=== PATIENT | female | born 1970 | race Caucasian/White ===

== ENCOUNTER 2024-10-21 20:47 | Emergency (ER) | payer OTHER, SELFPAY ==
--- OUTSIDE RECORDS SUMMARY | 2024-10-17 07:57 | XMS_ITS | Encounter Summary ---
Author Organization [place] Address [address] [place] [address] Care Team Providers Care Shot Bagger Name Role Phone Elida Blevins NP Primary Care Provider [phone] Reason for Visit * Reason Comments Chest Pain Started 11 am Saturd ay at her Fathers Encounter Details Date Type Department Care Team (Late st Contact Info) Description 10/17/2024 7:57 AM CDT - 10/17/2024 11:18 AM CDT Emergency Health [facility] Emergency Dept [address] [place] [address] Mickey Goins MD [address] [place] [address] Chest pain, unspecified type (Primary Dx); Acute back pain, unspecified back location, unspecified back pain laterality Discharge Disposition: Home or Self Care Social History Tobacco Use Types Packs/Day Years Used Date Smoking Tobacco: Never Smokeless Tobacco: Never Adolescent Education Answer Date Record ed Getting School Help Needed Not on file 02/28 Comments Unknown Sex and Gender Information Value Date Recorded Sex Assigned at Not on file 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 Gender Identity Not on file Sexual Orientation Not on file documented as of this encounter Last Filed Vital Signs Vital Sign Reading Time Taken Comments Blood Pressure 104/62 10/17/2024 11:00 AM CDT Pulse 77 10/17/2024 11:00 AM CDT Temperature 37.7 C (99.9 F) 10/17/2024 11:00 AM CDT Respiratory Rate 18 10/17/2024 11:00 AM CDT Oxygen Saturation 92% 10/17/2024 11:00 AM CDT Inhaled Oxygen Concentration - - Weight 95.3 kg (210 lb) 10/17/2024 8:03 AM CDT Height 175.3 cm (5' 9) 10/17/2024 8:03 AM CDT Body Mass Index 31.01 10/17/2024 8:03 AM CDT documented in this encounter Discharge Instructions * Discharge Instructions* Mickey Goins MD - 10/17/2024 10:56 AM CDT You were seen in the emergency department today for chest pain and back pain. We did tests including blood tests, ECG, and x-ray that showed no clear cause for your symptoms, but was reassuring against a life-threatening cause at this time. The back pain could be due to a musculoskeletal strain or spasm related to acute life stressors. I recommend taking acetaminophen and ibuprofen over the next s everal days to try to help with pain. Monitor symptoms over that time. Please follow up with your primary doctor in the next couple of weeks for ongoing evaluation and management of your symptoms. Return to the emergency department with new or worsening symptoms that you find concerning. documented in this encounter Medications at Time of Discharge albuterol (PROAIR HFA/PROVENTIL HFA/VENTOLIN HFA) 108 (90 Base) MCG/ACT inhaler Inhale 2 puffs into the lungs every 6 hours as needed for shortness of breath / dyspnea or wheezing 18 g 02/26/2022 lisinopril (ZESTRIL) 20 MG tablet Take 20 mg by mouth daily 12/12/2021 documented as of this encounter ED Notes * Mickey Goins MD - 10/17/2024 8:54 AM CDT [facility] Emergency Department Visit Note PATIENT: Jyoti Levy 54 year old female [id number] Chief complaint: Chief Complaint Patient presents with Chest Pain Started 11 am Thursday at her Fathers History of present illness: Patient is a 54 year old female with hypertension, elevated BMI presenting for evaluation of chest pain. Started 11 AM this past Thursday at father's . Described as a heaviness diffusely across herchest radiating to upper back and lower back. Has been constant since then. Has had difficulty sleeping due to the pain. Not clearly exertional. No aggravating or alleviating factors. No fevers. No cough. Having mild shortness of breath. No vomiting or abdominal pain. No lower extremity pain or edema. No changes in bowel or bladder patterns. No recent travel or surgeries, no prior VTE. She feels like she had similar pain years ago before she was started on high blood pressure medications and that went away on its own. Review of Systems: As in HPI above BP (!) 147/105 Pulse 93 Temp 99.9 ??F (37.7 ??C) (Oral) Resp 18 Ht 1.753 m (5' 9) Wt 95.3 kg (210 lb) SpO2 96% BMI 31.01 kg/m?? Physical Exam: Constitutional: laying in hospital bed, alert, oriented, and in no apparent distress HEENT: normocephalic, atraumatic, pupils 3mm, equal, round, and reactive to light, and sclerae anicteric Neck: no stridor Cardiovascular: regular rate and rhythm and no murmurs, rubs, or extra heart sounds Pulmonary: breathing comfortably on room air and lungs clear to auscultation bilaterally Abdominal: soft, non-tender, non-distended Extremities/MSK: no peripheral edema Skin: non-diaphoretic Neurologic: moves all four extremities spontaneously Psychiatric: calm, appropriate MDM: Patient is a 54 year old female with above history presenting for evaluation of chest pain. Vitals are notable for hypertension but otherwise normal, satting well on room air. Exam reassuring, she appears well. Differential includes ACS, though somewhat atypical presentation. Radiation to back/shoulders certainly raises question of dissection, but she is only mildly hypertensive, pain has been ongoing now for about 2 days, and she looks quite comfortable so this seems very unlikely. PE consideration though no clear risk factors. No infectious signs or symptoms. Considered Takotsubo cardiomyopathy but again really no respiratory symptoms, no hypoxia. Planning for labs, ECG, chest x-ray. We did have discussion about possible CT despite low pretest probability for dissection, she would like to hold off which is reasonable. Will trial nitro. Disposition pending above workup. Remainder of ED course below. ED COURSE: ED Course as of 10/17/24 1058 ThuOct 17, 2024 0854 EKG 12-lead, tracing only My independent ECG interpretation: - Ventricular rate 88 bpm, regular - CO, QRS, QT intervals normal - Dietrich normal - no ST segment or T wave changes concerning for acute ischemia - Comparison to prior ECGs: Normal - My independent interpretation: NSR 0931 D-Dimer Quantitative: 0.44 Effectively excluding PE 0931 Troponin T, High Sensitivity: <6 Insetting of ECG without acute ischemic changes, low concern for ACS. No need to trend. 0931 CBC with platelets, differential(!) Mild leukopenia, no localizing infectious signs or symptoms. No neutropenia. 0931 Basic metabolic panel(!) Reassuring, no kidney injury. Electrolytes normal. 1009 Chest XR, PA & LAT No acute process 1057 Patient reassessed, sitting up in bed, resting comfortably, not in distress. Not having chest pain. Still having some mild back pain. Vitals reassuring throughout emergency department stay, mildhypertension has resolved. No acute emergent pathologies identified, stable for outpatient follow-up. Back pain potentially musculoskeletal in nature related to acute stressors including recent passing of her father. There is really nothing as far as vitals, exam, history that suggest any more emergent pathology necessitating further workup. Acetaminophen and ibuprofen for pain. Primary follow-upin the next 1 to 2 weeks. ED return the event of new or worsening symptoms. She expressed understanding of and agreement with this. Encounter Diagnoses: Final diagnoses: Chest pain, unspecified type Acute back pain, unspecified back location, unspecified back pain laterality Final disposition: discharge Mickey Goins MD 10/17/2024 8:54 AM Emergency Medicine [facility] Mickey Goins MD 10/17/24 1058 * Tessa Hodge RN - 10/17/2024 8:04 AM CDT Pt reports chest pain that started at 11 am on Thursday at her Father's . Pt rates her pain 10/10. Triage Assessment (Adult) Row Name 10/17/24 0804 Triage Assessment Airway WDL WDL Respiratory WDL Respiratory WDL WDL Cardiac WDL Cardiac WDL X;chest pain Peripheral/Neurovascular WDL Peripheral Neurovascular WDL WDL Cognitive/Neuro/Behavioral WDL Cognitive/Neuro/Behavioral WDL WDL documented in this encounter Plan of Treatment Not on file documented as of this encounter Procedures Procedure Name Priority Date/Time Associated Diagnosis Comments XR CHEST 2 VIEWS STAT 10/17/2024 9:57 AM CDT EXTRA TUBE STAT 10/17/2024 8:15 AM CDT EXTRA RED TOP TUBE STAT 10/17/2024 8: 15 AM CDT EXTRA BLUE TOP TUBE STAT 10/17/2024 8 :15 AM CDT CBC WITH PLATELETS AND DIFFERENTIAL STAT 10/17/2024 8:15 AM CDT TROPONIN T, HIGH SENSITIVITY STAT 10/17/2024 8:15 AM CDT CBC WITH PLATELETS & DIFFERENTIAL STAT 10/17/2024 8:15 AM CDT D DIMER QUANTITATIVE STAT 10/17/2024 8:15 AM CDT BASIC METABOLIC PANEL STAT 10/17/2024 8:15 AM CDT EKG 12-LEAD, TRACING ONLY STAT 10/17/2024 8:04 AM CDT documented in this encounter Results * Chest XR, PA & LAT (10/17/2024 9:57 AM CDT) Anatomical Region Laterality Modality Chest Digital Radiogra phy 10/17/2024 9:57 AM CDT Impressions 10/17/2024 10:02 AM CDT IMPRESSION: No focal airspace opacities, pleural effusion or pneumothorax. The cardiac and mediastinal silhouettes are normal. Narrative 10/17/2024 10:02 AM CDT EXAM: XR CHEST 2 VIEWS LOCATION: [facility] DATE: 10/17/2024 INDICATION: 54F, non traumatic chest pain radiating to back COMPARISON: None. Procedure Note Selene Garcia MD - 10/17/2024 EXAM: XR CHEST 2 VIEWS LOCATION: [facility] DATE: 10/17/2024 INDICATION: 54F, non traumatic chest pain radiating to back COMPARISON: None. IMPRESSION: No focal airspace opacities, pleural effusion or pneumothorax.The cardiac and mediastinal silhouettes are normal. Mickey Goins MD IM DIAGNOSTIC IMAGING ORD ERABLES Final Result * D dimer quantitative (10/17/2024 8:15 AM CDT) D-Dimer Quantitative 0.44 0.00 - 0.50 ug/mL FEU 10/17/2024 9:26 AM CDT [facility] Blood BLOOD SPECIMEN / Unknown Venipuncture / Unknown 10/17/2024 8:15 AM CDT 10/17/2024 8:20 AM CDT Narrative [facility] - 10/17/2024 9:26 AM CDT This D-dimer assay is intended for use in conjunction with a clinical pretest probability assessment model to exclude pulmonary embolism (PE) and deep venous thrombosis (DVT) in outpatients suspected of PE or DVT. The cut-off value is 0.50 ug/mL FEU. For patients 50 years of age or older, the application of age-adjusted cut-off values for D-Dimer may increase the specificity without significant effect on sensitivity. The literature suggested calculation age adjusted cut-off in ug/L = age in years x 10 ug/L. The results in this laboratory are reported as ug/mL rather than ug/L. The calculation for age adjusted cut off in ug/mL= age in years x 0.01 ug/mL. For example, the cut off for a 76 year old male is 76 x 0.01 ug/mL = 0.76 ug/mL (760 ug/L). Abhijit Lewis et al. Age adjusted D-dimer cut-off levels to rule out pulmonary embolism: The ADJUST-PE Study. SIERRA 2014;311:7358-6751.; HJ Colten et al. Diagnostic accuracy of conventional or age adjusted D-dimer cutoff values in older patients with suspected venous thromboembolism. Systemic review and meta-analysis. BMJ 2013:346:f2492. us Mickey Goins MD LAB - BLOOD ORDERABLES Fin al Result Performing Organization Address City/[facility]/ZIP Co de Phone Number [facility] Acute Care Lab [address] [place] [address]. Room [address] [place] [phone] * Extra Red Top Tube (10/17/2024 8:15 AM CDT) Hold Specimen [facility] 10/17/2024 9:31 AM CDT [facility] Blood BLOOD SPECIMEN / Unknown Venipuncture / Unknown 10/17/2024 8:15 AM CDT 10/17/2024 8:21 AM CDT Mickey Goins MD LAB - BLOOD ORDERABLES Fin al Result Performing Organization Address [facility] Co de Phone Number [facility] [address] [place] [address]. Room # [address] [place] [phone] * Extra Blue Top Tube (10/17/2024 8:15 AM CDT) Hold Specimen [facility] 10/17/2024 9:31 AM CDT [facility] Blood BLOOD SPECIMEN / Unknown Venipuncture / Unknown 10/17/2024 8:15 AM CDT 10/17/2024 8:20 AM CDT Mickey Goins MD LAB - BLOOD ORDERABLES Fin al Result Performing Organization Address [facility] Co de Phone Number [facility] [address] [place] [address]. Room # [address] [place] [phone] * (ABNORMAL) CBC with platelets and differential (10/17/2024 8:15 AM CDT) WBC Count 3.2(L) 4.0 - 11.0 10e3/uL 10/17/2024 8:23 AM CDT [facility] RBC Count 4.02 3.80 - 5.20 10e6/uL 10/17/2024 8:23 AM CDT [facility] Hemoglobin 13.4 11.7 - 15.7 g/dL 10/17/2024 8:23 AM CDT [facility] Hematocrit 38.8 35.0 - 47.0 % 10/17/2024 8:23 AM CDT [facility] MCV 97 78 - 100 fL 10/17/2024 8:23 AM CDT [facility] MCH 33.3(H) 26.5 - 33.0 pg 10/17/2024 8:23 AM CDT [facility] MCHC 34.5 31.5 - 36.5 g/dL 10/17/2024 8:23 AM CDT [facility] RDW 12.3 10.0 - 15.0 % 10/17/2024 8:23 AM CDT [facility] Platelet Count 208 150 - 450 10e3/uL 10/17/2024 8:23 AM CDT [facility] % Neutrophils 71 % 10/17/2024 8:23 AM CDT [facility] % Lymphocytes 8 % 10/17/2024 8:23 AM CDT [facility] % Monocytes 18 % 10/17/2024 8:23 AM CDT [facility] % Eosinophils 2 % 10/17/2024 8:23 AM CDT [facility] % Basophils 1 % 10/17/2024 8:23 AM CDT [facility] % Immature Granulocytes 0 % 10/17/2024 8:23 AM CDT [facility] NRBCs per 100 WBC 0 <1 /100 025 8:23 AM CDT [facility] Absolute Neutrophils 2.2 1.6 - 8.3 10e3/uL 10/17/2024 8:23 AM CDT [facility] Absolute Lymphocytes 0.3(L) 0.8 - 5.3 10e3/uL 10/17/2024 8:23 AM CDT [facility] Absolute Monocytes 0.6 0.0 - 1.3 10e3/uL 10/17/2024 8:23 AM CDT [facility] Absolute Eosinophils 0.1 0.0 - 0.7 10e3/uL 10/17/2024 8:23 AM CDT [facility] Absolute Basophils 0.0 0.0 - 0.2 10e3/uL 10/17/2024 8:23 AM CDT [facility] Absolute Immature Granulocytes 0.0 <=0.4 10e3/uL 10/17/2024 8:23 AM CDT [facility] Absolute NRBCs 0.0 10e3/uL 10/17/2024 8:23 AM CDT [facility] Blood BLOOD SPECIMEN / Unknown Venipuncture / Unknown 10/17/2024 8:15 AM CDT 10/17/2024 8:21 AM CDT Mickey Goins MD LAB - BLOOD ORDERABLES Greg urias Result [facility]. Room [address] [place] [phone] * Troponin T, High Sensitivity (10/17/2024 8:15 AM CDT) [facility] Troponin T, High Sensitivity <6 <=14 ng/L 10/17/2024 8:56 AM CDT [facility] Comment: Either a High Sensitivity Troponin T baseline (0 hours) value = 100 ng/L, or an increase in High Sensitivity Troponin T = 7 ng/L at 2 hours compared to 0 hours (2-0 hours), suggests myocardial injury, and urgent clinical attention is required. If the 2-0 hours increase is <7 ng/L, a High Sensitivity Troponin T result above gender-specific reference ranges warrants further evaluation. Recommendations for further evaluation include correlation with clinical decision-making tool (e.g., HEART), a 3rd High Sensitivity Troponin T test 2 hours after the 2nd (a 20% change from baseline would represent concern), admission for observation, close PCC/cardiology follow-up, or urgent outpatient provocative testing. Blood BLOOD SPECIMEN / Unknown Venipuncture / Unknown 10/17/2024 8:15 AM CDT 10/17/2024 8:20 AM CDT Mickey Goins MD LAB - BLOOD ORDERABLES Fin al Result Performing Organization Address City/[facility]/ZIP Co de Phone Number [facility] [address] [facility]. [address] [place] [address], [facility] * (ABNORMAL) Basic metabolic panel (10/17/2024 8:15 AM CDT) Sodium 137 135 - 145 mmol/L 10/17/2024 8:57 AM CDT [facility] Potassium 3.9 3.4 - 5.3 mmol/L 10/17/2024 8:57 AM CDT [facility] Chloride 99 98 - 107 mmol/L 10/17/2024 8:57 AM CDT [facility] Carbon Dioxide (CO2) 27 22 - 29 mmol/L 10/17/2024 8:57 AM CDT [facility] Anion Gap 11 7 - 15 mmol/L 10/17/2024 8:57 AM CDT [facility] Urea Nitrogen 5.4(L) 6.0 - 20.0 mg/dL 10/17/2024 8:57 AM CDT [facility] Creatinine 0.69 0.51 - 0.95 mg/dL 10/17/2024 8:57 AM CDT [facility] GFR Estimate >90 >60 mL/min/1.7 3m2 10/17/2024 8:57 AM CDT [facility] Comment:eGFR calculated usmd 2020 CKD-EPI equation. Calcium 8.6(L) 8.8 - 10.4 mg/dL 10/17/2024 8:57 AM T [facility] Glucose 107(H) 70 - 99 mg/dL 10/17/2024 8:57 AM CDT [facility] Blood BLOOD SPECIMEN / Unknown Venipuncture / Unknown 10/17/2024 8:15 AM CDT 10/17/2024 8:20 AM CDT Mickey Goins MD LAB - BLOOD ORDERABLES Fin al Result [facility] [address] [facility]. [address] [place] [address], [facility] * EKG 12-lead, tracing only (10/17/2024 8:04 AM CDT) Systolic Blood Pressure mmHg RADIOLOGY RESULTS Diastolic Blood Pressure mmHg RADIOLOGY RESULTS Ventricular Rate 88 BPM RAD IOLOGY RESULTS Atrial Rate 88 BPM RADIOLOG Y RESULTS CO Interval 162 ms RADIOLOG Y RESULTS QRS Duration 82 ms RADIOLO GY RESULTS QT 354 ms RADIOLOGY RESULTS QTc 428 ms RADIOLOGY RESULTS P Dietrich 24 degrees RADIOLOGY RESULTS R AXIS -4 degrees RADIOLOGY RESULTS T Dietrich 31 degrees RADIOLOGY RESULTS Interpretation ECG Sinus rhythm Normal ECG No previous ECGs available Confirmed by SEE ED PROVIDER NOTE FOR, ECG INTERPRETATION (4000), editor house organ Erick Mustafa ([id number]) on 10/18/2024 10:16:06 AM RADIOLOGY RESULTS 10/17/2024 8:04 AM CDT 10/18/2024 10:16 AM CDT us Mickey Goins MD ECG ORDERABLES Edited Res ult - Final RADIOLOGY RESULTS documented in this encounter Visit Diagnoses Diagnosis Chest pain, unspecified type- Primary Acute back pain, unspecified back location, unspecified back pain laterality documented in this encounter Administered Medications Inactive Administered Medications - up to 3 most recent administrations Medication Order MAR Action Action Date Dose Rate Site nitroGLYcerin (NITROSTAT) sublingual tablet 0.4 mg 0.4 mg, Sublingual, EVERY 5 MIN PRN, chest pain, Starting on 10/17/24 at 0909 documented in this encounter Active and Recently Administered Medications Times are shown in CDT. PRN Medication Order 10/15/2024 10/16/2024 10/17/2024 nitroGLYcerin (NITROSTAT) sublingual tablet 0.4 mg 0.4 mg, Sublingual, EVERY 5 MIN PRN, chest pain, Starting on 10/17/24 at 0909 documented in this encounter Care Teams Shot Bagger Relationship Specialty Start Date End Date Elida Blevins NP [address], [place] [address] PCP - General Nurse Practitioner 06/25/14 documented as of this encounter
[2024-10-21 20:49] VITALS: BP 143/89; PULSE 90; RESP 18; TEMP 36.2; O2SAT 96; BMI 31.0
--- NOTE | 2024-10-21 21:14 | ED_ITS ---
HPI - Extremity Injury (Upper) General Date Seen: 10/21/24 Chief Complaint: Extremity Pain/Injury, Upper Stated Complaint: pain in hands Time Seen by Provider: 10/21/24 21:00 Source: patient Mode of arrival: ambulatory Limitations: no limitations History of Present Illness HPI narrative: Patient is a 54-year-old female visiting here from 1 0 legs, she presents here with bilateral arm discomfort, describes a for mid forearm all the way to her finger tips, made worse when she extends her hands or flexor hands, ibuprofen significantly helped the pain this morning. She is taking this every 8 hours however when it wears off the pain comes back. She felt a little faint in the room also, felt she might pass out, she was seen 3 days ago with the [facility] Emergency Room. She did have some chest pain there, she ruled out, she denies any current chest pain, she was also having back pain at that time. She denies any numbness tingling or weakness, any swelling of the hands. Any fevers chills or sweats, no history of tick bites, no history of travel history, no new medications, she drink alcohol, she tells me she has 2 drinks a day. She has no previous history of any aortic, cardiac, or pulmonary problems. Her father just , which she feels may be of more by stress type reaction, Her only medications include bupropion, and lisinopril hydrochlorothiazide for hypertension. She has no known allergies. 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 Works for [employer]. complaint: injury to: left, right, arm, wrist and hand Hand dominance: Right Related Data Allergies Allergy/AdvReac Type Severity Reaction Status Date / Time No Known Drug Allergies Allergy Verified 10/21/24 20:54 Exam Const: Vital Signs, click to edit/add: Vital Signs - 24 hr 10/21/24 20:49 10/21/24 22:25 Temperature 97.2 F L Pulse Rate [Left P ulse Oximeter] 90 85 Respiratory Rate 18 16 Blood Pressure [Ri ght Upper Arm] 143/89 H 118/65 Pulse Oximetry 96 96 Oxygen Delivery Me thod Room Air Room Air Course Course ED Course: I was able to review information from [facility] in [place], they did rule out on 10/17/2024: This is 2 days after her chest of pain started, there is no family history of any renal disease, aortic issues. Her chest x-ray was normal, her D-dimer was normal, her troponin was negative also she has had no further chest pain, this is bilateral arm discomfort. Her blood pressures normalized here and she feels so much better after our treatments. I did offer to do a workup here for more for the aortic issues. Given I think she is low risk based on what I am seeing. I do think she needs to come back if further issues, we discussed the warning signs of this. I did give her a prescription for both Toradol, times 20 tablets and also Ativan for 10 tablets of 0.5 mg at of [facility] Reevaluation(s) Time of Reevaluation #1: 22:46 Reevaluation #1: Patient feeling much better marked decrease in her pain with the Toradol. Her vital signs of all fairly normalized. We put a request in for her records from [place], to ensure that she has had a sample workup for her chest pain. Once I get some records, we can go forward with either discharge or further workup I w ill discuss this with her. Vital Signs Vital signs: Initial Vital Signs Temperature 97.2 F L 10/21/24 20:49 Temperature Source Temporal Artery Scan 10/21/24 20:49 Pulse Rate 90 10/21/24 20:49 Pulse Rhythm Regular 10/21/24 20:49 Respiratory Rate 18 10/21/24 20:49 Blood Pressure 143/89 H 10/21/24 20:49 Blood Pressure Mean 107 H 10/21/24 20:49 Blood Pressure Position Sitting 10/21/24 20:49 Pulse Oximetry 96 10/21/24 20:49 Oxygen Delivery Method Room Air 10/21/24 20:49 Vital Signs Temperature 97.2 F L 10/21/24 20:49 Pulse Rate 90 10/21/24 20:49 Respiratory Rate 18 10/21/24 20:49 Blood Pressure 143/89 H 10/21/24 20:49 Pulse Oximetry 96 10/21/24 20:49 Oxygen Delivery Method Room Air 10/21/24 20:49 Temperature 97.2 F L 10/21/24 20:49 Pulse Rate 85 10/21/24 22:25 Respiratory Rate 16 10/21/24 22:25 Blood Pressure 118/65 10/21/24 22:25 Pulse Oximetry 96 10/21/24 22:25 Oxygen Delivery Method Room Air 10/21/24 22:25 Medications Administered Medications: Discontinued Medications Generic Name Dose Route Start Last Admin Trade Name Moriah PRN Reason Stop Dose Admin Ketorolac Tromethamine 30 mg 10/21/24 21:09 10/21/24 21:33 Ketorolac 30 Mg/Ml Inj IM 10/21/24 21:10 30 mg ONCE ONE Administration Lorazepam 1 mg 10/21/24 21:10/21/24 21:33 Lorazepam 1 Mg Tablet PO 10/21/24 21:10 1 mg ONCE ONE Administration Discharge Plan Discharge Clinical Impression: Bilateral arm pain Patient Disposition: Home, Self-Care Condition: Improved Instructions: Arm Pain (ED) Additional Instructions: I do think this is from the stress of what is happening, your blood pressure normalized you feel a lot better the pain is gone away with both the Ativan and Toradol, I will give you a small supply both, he can use over the course of the weekend. I do encourage her to come back and be seen if increasing chest pain shortness of breath passing out or other symptoms. But on review of the information from [facility] it looks like they did rule you of 4 days ago. I did give you a prescription for both Toradol and Ativan in [facility], do not drink alcohol with the Ativan and do not use any ibuprofen with the Toradol. You may use acetaminophen with both. Activity Level: Light activity Discharge Diet: Regular Follow Up/Referrals: Provider,Not a Local [Primary Care Provider, Family Practice] Stand Alone Forms: [facility] Info Instructions
[2024-10-21] MEDS: LORazepam 1 MG TABLET PO (21:33)
[2024-10-21] MEDS: KETOROLAC 30 MG/ML inj IM (21:33)
--- OUTSIDE RECORDS SUMMARY | 2024-10-21 21:42 | XMS_ITS | Encounter Summary ---
Author Organization [place] Address [address] [place] [id number] Care Team Providers Care Quantity Surveyor Name Role Phone Elida Blevins NP Primary Care Provider [phone] Encounter Details Date Type Department Care Team (Latest Contact Info) Description 10/17/2024 Travel Social History Tobacco Use Types Packs/Day Years Used Date Smoking Tobacco: Never Smokeless Tobacco: Never Adolescent Education Answer Date Record ed Getting School Help Needed Not on file 02/28 Comments Unknown Sex and Gender Information Value Date Recorded Sex Assigned at Not on file Legal Sex Female 4:29 AM [employer] Gender Identity Not on file Sexual Orientation Not on file documented as of this encounter Plan of Treatment Not on file documented as of this encounter Visit Diagnoses Not on filedocumented in this encounter Care Teams Quantity Surveyor Relationship Specialty Start Date End Date Elida Blevins NP [address] [place] [id number] PCP - General Nurse Practitioner 06/25/14 documented as of this encounter
--- OUTSIDE RECORDS SUMMARY | 2024-10-21 21:43 | XMS_ITS | Encounter Summary ---
[facility] Address [address] [place] [address] Care Team Providers Care Gum Rolling Machine Tender Name Role Phone Elida Blevins APRN, CNP Primary Care Provider Encounter Details Date Type Department Care Team (Late st Contact Info) Description 06/14/2017 Emergency Room External to [facility], Provider COUGH Social History Tobacco Use Types Packs/Day Years Used Date Smoking Tobacco: Never Smokeless Tobacco: Never Alcohol Use Standard Drinks/Week Comments Yes 4.2 (1 standard drink = 0.6 oz p ure alcohol) weekly Comments No Sex and Gender Information Value Date Recorded Sex Assigned at Not on file Legal Sex Female 4:15 AM CDT Gender Identity Not on file Sexual Orientation Not on file 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
--- OUTSIDE RECORDS SUMMARY | 2024-10-21 21:43 | XMS_ITS | Clinical Summary ---
Author Organization [facility] Address [address] [place] [address] Care Team Providers Care Angiographer Name Role Phone Elida Blevins APRN, CNP Primary Care Provider Source Comments You are receiving this document as you are listed as the primary care provider,follow-up provider, or the patient has been referred to you for consultation.This is in compliance with the Medicare and[facility] EHR Incentive Program,which states Providers who transition their patient to another setting of careor provider of care or refers their patient to another provider of care shouldprovide summary care record for each transition of care or referral. [facility] Allergies No known active allergies Medications buPROPion (WELLBUTRIN XL) 150 MG 24 hour release tabletIndications :Major depressive disorder, single episode, mild (HRC) Take 1 Tablet (150 mg) by mouth daily. 90 Tablet 3 4 Active hydroCHLOROthiazi de (ORETIC) 25 MG tabletIndications :Essential hypertension (HRC) Take 1 Tablet (25 mg) by mouth daily. 90 Tablet 3 4 Active lisinopril (ZESTRIL) 20 MG tabletIndications :Essential hypertension (HRC) Take 1 Tablet (20 mg) by mouth daily. 90 Tablet 3 4 Active acetaminophen (TYLENOL) 325 MG tablet Take 1-2 Tablets (325-650 mg) by mouth every 6 hours as needed for Pain. Maximum of 12 tablets per day 4 Active ibuprofen (MOTRIN) 200 MG tablet Take 3 Tablets (600 mg) by mouth every 6 hours as needed for Pain. Active Active Problems Problem Noted Date Diagnosed Date Vulvar skin tag 09/22/2023 Major depressive disorder, single episode, mild 07/14/2022 Essential hypertension 01/29/2021 Ventral hernia Resolved Problems Problem Noted Date Diagnosed Date Resolved Date Peroneal tendinitis of left lower extremity 08/11/2022 08/28/2023 Achilles tendinitis of both lower extremities 08/12/1908/28/2023 Impaired fasting glucose 06/24/2021 Cervical cancer screening 11/24/2016 Overview (06/27/2021): Per visit note dated October: Hx of abnormal paps: yes, age 29 [id number] NILM 2016 NILM; HPV Negative 46 y.o. 2021 NILM; HPV Negative 51 y.o. Plan per ASCCP guidelines: Cotesting (pap+HPV) in 2026 Migraine 11/02/2023 Immunizations Immunization Administration Dates Next Due DT Ped 06/13/1998 Pfizer Monovalent 12+ Purple Top 01/19/2021,12/16 Td (7+ yrs) 11/07/2019 Tdap 05/19/2008 05/19/2018 Zoster RZV (Shingrix) 10/05/2023,07/14/2022 Family History Medical History Relation Name Comments Alcohol/Drug Abuse Father Cerebrovascular Disease Father clot Cancer, Other Mother lung, bone, br ain Alcohol/Drug Abuse Brother Hyperlipidemia Maternal Grandfather Chintan Marquez Hypertension Maternal Grandfather hCintan Marquez Cancer, Breast Maternal Grandmother 50s Diabetes, Type II Paternal Grandmother Alcohol/Drug Abuse Sister Anesthesia Reaction Negative Family History Bleeding Disorder Negative Family History Cancer, Colon Negative Family History Cancer, Ovary Negative Family History Migraines Negative Family History Osteoporosis Negative Family History Thromboembolic Disease Negative Family History Thyroid Disorder Negative Family History Relation Name Status Comments Father Alive Mother (Age 34) cancer Brother Alive Daughter Alive Maternal Grandfather Chintan Marquez Maternal Grandmother Other Alive Paternal Grandfather Paternal Grandmother Sister Alive Son Alive Social History Tobacco Use Types Packs/Day Years Used Date Smoking Tobacco: Never Smokeless Tobacco: Never Tobacco Cessation:Counseling Given: Not Answered Alcohol Use Standard Drinks/Week Comments Yes 4.2 (1 standard drink = 0.6 oz p ure alcohol) weekly PHQ-2 Answer Date Recorded PHQ-2 Score 2 07/14/2022 Financial Resource Strain Answer Date R ecorded Is it hard for you to pay fo r the very basics like food, housing, medical care or heating? No 10/05/2023 Food Insecurity Answer Date Recorded Does your food run out before you have the money to buy more? No 10/05/2023 Transportation Needs Answer Date Record ed Does a lack of transportatio n keep you from your medical appointments or from getting your medications? 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 Not on file Last Filed Vital Signs Vital Sign Reading Time Taken Comments Blood Pressure 134/78 11/06/2023 10:00 AM CDT Pulse 59 11/06/2023 10:00 AM CDT Temperature 36 C (96.8 F) 11/06/2023 10:00 AM CDT Respiratory Rate 14 11/06/2023 10:00 AM CDT Oxygen Saturation 100% 11/06/2023 10:00 AM CDT Inhaled Oxygen Concentration - - Weight 102.4 kg (225 lb 12 oz) 11/06/2023 7:43 A M CDT Height 175.3 cm (5' 9) 11/06/2023 7:43 AM CDT Body Mass Index 33.34 11/06/2023 7:43 AM CDT Plan of Treatment Health Maintenance Due Date Last Done Comments Pneumococcal Vaccine 50+ Yrs (1 of 1 - PCV) 2020 FIT Colon Cancer Screening 12/27/2022 12/27/2021, COVID-19 Vaccine ( season) 2024 01/19/2021, 12/29/2020 Mammogram 08/23/2024 08/24/2023, 10/0 07/2021, 10/22/2020, Additional history exists Adult Preventive Visit 10/04/2024 4, 06/24/2021, 10/19/2017, Additional history exists Prediabetes: HGBA1C 10/04/2024 10/05/2023, 07/14/2022, 11/07/2019, Additional history exists Influenza Vaccine (Season Ended) 2025 Cholesterol 06/04/2026 06/04/2021, 10/17, 11/13/2016, Additional history exists Cervical Cancer Screening 06/24/20262021, 06/24/2021, 11/13/2016, Additional history exists DTaP/Tdap/Td Vaccine (4 - Tdap) 11/06/2029 11/07/2019, 05/19/2008, 06/13/1998 HIV Screening (Preventive Services) Completed 10/19/2017 Hep C Screening (Preventive Services) Completed 10/05/2023 Zoster/Shingles Vaccine Completed 10/05/2023, 07/14 HepA Vaccine Aged Out No longer eligi ble based on patient's age to complete this topic Hib Vaccine Aged Out No longer eligi ble based on patient's age to complete this topic IPV (Polio) Vaccine Aged Out No longe r eligible based on patient's age to complete this topic MCV4 Vaccine Aged Out No longer eligi ble based on patient's age to complete this topic Meningococcal B Vaccine Aged Out No l onger eligible based on patient's age to complete this topic Medical Devices Implanted Type Area Mainframe Architect Device Identifier Shelf Expiration Date Model / Serial / Lot Breast Clip -11/05/2020 Implanted:10/17 (Quantity not on file) Breast Clip SNAPP' T3 / / [id number] Procedures Procedure Name Priority Date/Time Associated Diagnosis Comments HGB A1C Routine 10/05/2023 2:23 PM CDT Pre-diabetes HEPATITIS C ANTIBODY, WITH REFLEX (ANTI-HCV) Routine 10/05/2023 2:23 PM CDT Need for hepatitis C screening test MM MAMMOGRAM SCREENING BILAT W 3D PRASHANTH W CAD Routine 08/24/2023 2:51 PM CDT FIT,OCCULT BLOOD, STOOL Routine 12/27/2021 8:00 AM CDT Encounter for screening for malignant neoplasm of colon HPV WITH 16 18 GENOTYPING, CERVICAL/ENDOCERV ICAL Routine 06/24/2021 8:12 AM DENTAL ASSISTANT Screening for cervical cancer LIPID PANEL & DIRECT LDL (IF NEEDED) Routine 06/04/2021 8:01 AM DENTAL ASSISTANT Lipid screening HIV 1/2 AG/AB 4TH GEN Routine 10/19/2017 9:17 AM CDT Screening for HIV (human immunodeficiency virus) from Last 3 Months or Most Recently Relevant to Health Maintenance Results * Hepatitis C Antibody, with Reflex (10/05/2023 2:23 PM CDT) Pathologist [facility] Hepatitis C Antibody Negative (Non Reactive) Negative (Non Reactive) 10/05/2023 9:15 PM CDT [facility] Comment:Antibodies to HCV no t detected. Does not exclude the possiblity of exposure to HCV. Blood Venipuncture / Unknown 10/05/2023 2:23 PM CDT 10/05/2023 2:59 PM CDT us Elida Blevins APRN, SILVICULTURE TEACHER LAB_1 Final Result Performing Organization Address City/State/[facility] Co de Phone Number [facility] [address] * Hgb A1C (10/05/2023 2:23 PM CDT) Pathologist [facility] Hemoglobin A1C 5.1 <=5.6 % 10/05/2023 9:58 PM CDT [facility] Estimated Average Glucose (Calc) 100 < 117 mg/dL 10/05/2023 9:58 PM CDT [facility] Comment:Estimated average gl ucose (eAG) converts A1c into glucose units (mg/dL) and estimates average glucose over the past approximately 3 months. The eAG reference interval (<117 mg/dL) corresponds to an A1c of <5.7%. Blood Venipuncture / Unknown 10/05/2023 2:23 PM CDT 10/05/2023 2:59 PM CDT Elida Blevins APRN, CNP LAB_1 Final Result Performing Organization Address City/[facility]/ZIP Co de Phone Number [facility] [address] [place] [address] * MM Mammogram Screening Bilat W 3D Prashanth W CAD (08/24/2023 2:51 PM CDT) Anatomical Region Laterality Modality Breast Bilateral Mammography Impressions 08/25/2023 11:02 AM CDT : ACR BI-RADS Category 2: Benign RECOMMENDATION: Follow Up Imaging in 12 months - Bilateral The results and recommendations of this examination will be communicated to the patient. Narrative 08/25/2023 11:02 AM CDT MM MAMMOGRAM SCREENING BILAT W 3D PRASHANTH W CAD performed on 08/24/23 Compared to: 02/17/2022 MM Mammogram Screening Bilat W 3D Prashanth W CAD, 10/22/2020 MM Mammogram Screening Bilat W 3D Prashanth W CAD, and 11/16/2017 MM Mammogram Screening Bilat W CAD FINDINGS: Bilateral screening mammogram was performed with the assistance of Computer-Aided Detection and breast tomosynthesis. The breasts are heterogeneously dense, which may obscure small masses. There are benign findings, not significantly changed. There is no radiographic evidence of malignancy. Elida Blevins APRN, CNP RAD RODO Final Result * FIT COLON RECTAL CANCER SCREENING - Year 3 (12/27/2021 8:00 AM CDT) FIT Specimen 1 Negative Negative 01/03/2022 2:13 PM CDT [facility] Stool 12/27/2021 8:00 AM CDT 01/02/2022 9:33 PM CDT Elida Blevins APRN, CNP LAB_1 Final Result Performing Organization Address City/[facility]/ZIP Co de Phone Number [facility] [address] [place], [place] [address] [phone] * HPV with 16 18 Genotyping (06/24/2021 8:12 AM DENTAL ASSISTANT) HPV High Risk Type 16 PCR Not Detected Not detected 06/27/2021 6:18 AM [facility] HPV High Risk Type 18 PCR Not Detected Not Detected 06/27/2021 6:18 AM [facility] HPV High Risk Other Than 16/18 Not Detected Not detected 06/27/2021 6:18 AM [facility] Cervical Broom ENTIRE ENDOCERVIX / Unknown 06/24/2021 8:12 AM DENTAL ASSISTANT 06/24/2021 8:15 AM DENTAL ASSISTANT [facility] - 06/27/2021 6:18 AM DENTAL ASSISTANT The [facility]agan HPV test is a qualitative in vitro test for the detection of Human Papillomavirus in [facility] patient specimens. The test utilizes amplification of target DNA by Polymerase Chain Reaction (PCR) and nucleic acid hybridization for the detection of 14 high-risk (HR) HPV types. The assay tests for high risk types (16, 18, 31, 33, 35, 39, 45, 51, 52, 56, 58, 59, 66, and 68). us Elida Blevins APRN, SILVICULTURE TEACHER LAB_1 Final Result [id number] [place] [address] * Lipid Panel and Direct LDL(If Needed) (06/04/2021 8:01 AM DENTAL ASSISTANT) Cholesterol 185 0 - 199 mg/dL 06/04/2021 1:59 PM DENTAL ASSISTANT [facility] Triglyceride 128 <=149 mg/dL 06/04/2021 1:59 PM DENTAL ASSISTANT [facility] HDL Cholesterol 59 >=40 mg/dL 06/04/2021 1:59 PM DENTAL ASSISTANT [facility] LDL, Calculated 100 <130 mg/dL 06/04/2021 1:59 PM DENTAL ASSISTANT [facility] Non HDL Chol, Calculated 126 <=159 mg/dL 06/04/2021 1:59 PM DENTAL ASSISTANT [facility] Cholesterol/HDL Ratio 3.1 06/04/2021 1:59 PM DENTAL ASSISTANT [facility] Hours Fasting 16 06/04/2021 1:59 PM DENTAL ASSISTANT [facility] Blood Venipuncture / Unknown 06/04/2021 8:01 AM DENTAL ASSISTANT 06/04/2021 8:02 AM DENTAL ASSISTANT us Elida Blevins PAYROLL SERVICES ANALYST, SILVICULTURE TEACHER LAB_1 Final Result Performing Organization Address [facility] Co de Phone Number [address] [address], [facility] [phone] [facility] [address] [place] [address], [facility] [phone] * HIV 1/2 Ag/Ab 4th Generation (10/19/2017 9:17 AM CDT) [facility] HIV 1/2 AG/AB 4thGEN Negative (Non Reactive) [facility]GNR [facility] Comment:HIV-1 p24 Ag and HIV -1/HIV-2 Ab not detected. 10/19/2017 9:17 AM CDT 10/19/2017 9:43 AM CDT Narrative [facility] - 10/19/2017 12:43 PM CDT Performed at [facility], [address] [place] [address] us Elida Blevins PAYROLL SERVICES ANALYST, SILVICULTURE TEACHER LAB_1 Final Result Performing Organization Address [facility]/ZIP Co de Phone Number [facility] [phone] from Last 3 Months or Most Recently Relevant to Health Maintenance Insurance [employer] [address] [facility] [address] [place] [id number] Care Teams Angiographer Relationship Specialty Start Date End Date Elida Blevins, PAYROLL SERVICES ANALYST, SILVICULTURE TEACHER [address] [place] [id number] PCP - General 08/15/09
--- OUTSIDE RECORDS SUMMARY | 2024-10-21 21:43 | XMS_ITS | Clinical Summary ---
Author Organization [facility] Address [address] [place] [address] Care Team Providers Care Game Room Attendant Name Role Phone Elida Blevins NP Primary Care Provider [phone] Allergies No known active allergies Medications hydrochlorothia zide (HYDRODIURIL) 25 MG tablet Take 25 mg by mouth 7 Active lisinopril (ZESTRIL) 20 MG tablet Take 20 mg by mouth daily 2 Active albuterol (PROAIR HFA/PROVENTIL HFA/VENTOLIN HFA) 108 (90 Base) MCG/ACT inhaler Inhale 2 puffs into the lungs every 6 hours as needed for shortness of breath / dyspnea or wheezing 18 g 2 Active Active Problems Problem Noted Date Diagnosed Date Ventral hernia 10/17/2024 Major depressive disorder, single episode, mild 07/14/2022 Essential hypertension 01/29/2021 Encounters Date Type Department Care Team Description 10/17/2024 7:57 AM CDT - 10/17/2024 11:18 AM T Emergency [facility] Emergency Dept [address] [place] [address] Mickey Goins MD Chest pain, unspecified type (Primary Dx); Acute back pain, unspecified back location, unspecified back pain laterality Discharge Disposition: Home or Self Care 10/17/2024 Travel from Last 3 Months Social History Tobacco Use Types Packs/Day Years Used Date Smoking Tobacco: Never Smokeless Tobacco: Never Adolescent Education Answer Date Record ed Getting School Help Needed Not on file 02/28 Comments Unknown Sex and Gender Information Value Date Recorded Sex Assigned at Not on file Legal Sex Female 4:29 AM [employer] Gender Identity Not on file Sexual Orientation Not on file Last Filed Vital Signs [...] Mass Index 31.01 10/17/2024 8:03 AM CDT Plan of Treatment Health Maintenance Due Date Last Done Comments ADVANCE CARE PLANNING 1970 ANNUAL REVIEW OF HM ORDERS 1970 CT COLONOGRAPHY 1970 DEPRESSION ACTION PLAN 1970 FLEX SIG 1970 PHQ-9 1970 sDNA (Cologuard) 1970 COLONOSCOPY 1980 HEPATITIS B VACCINE (1 of 3 - 19+ 3-dose series) 1989 YEARLY PREVENTIVE VISIT 05/19/2009 05/19/2008, 09/15 LIPID 2010 PNEUMOCOCCAL VACCINE 50+ YEARS (1 of 1 - PCV) 2020 COLORECTAL CANCER SCREENING 12/27/2022 FIT 12/27/2022 12/27/2021 COVID-19 VACCINE ( season) 2024 01/19/2021, 12/29/2020 PAP 06/24/2024 06/24/2021 INFLUENZA VACCINE (Season Ended) 2025 MAMMO SCREENING 08/23/2025 08/24/2023, 04/0 12/2023, 02/17/2022, Additional history exists BMP 10/17/2025 10/17/2024, 02/0 01/2010, 09/15/2005 DIABETES SCREENING 10/18/2027 10/17/2024, 0 06/26/2009, 09/15/2005 DTAP/TDAP/TD VACCINE (3 - Td or Tdap) 11/06/2029 11/07/2019, 05/19/2008 HIV SCREENING Completed 10/19/2017 HEPATITIS C SCREENING Completed 10/05/2023 ZOSTER VACCINE Completed 10/05/2023, 07/14/2022 HPV VACCINE Aged Out No longer eligi ble based on patient's age to complete this topic MENINGITIS VACCINE Aged Out No longer eligible based on patient's age to complete this topic Procedures Procedure Name Priority Date/Time Associated Diagnosis Comments XR CHEST 2 VIEWS STAT 10/17/2024 9:57 AM CDT CBC WITH PLATELETS & DIFFERENTIAL STAT 10/17/2024 8:15 AM CDT D DIMER QUANTITATIVE STAT 10/17/2024 8:15 AM CDT EXTRA RED TOP TUBE STAT 10/17/2024 8: 15 AM CDT EXTRA BLUE TOP TUBE STAT 10/17/2024 8 :15 AM CDT CBC WITH PLATELETS AND DIFFERENTIAL STAT 10/17/2024 8:15 AM CDT EXTRA TUBE STAT 10/17/2024 8:15 AM CDT TROPONIN T, HIGH SENSITIVITY STAT 10/17/2024 8:15 AM CDT BASIC METABOLIC PANEL STAT 10/17/2024 8:15 AM CDT EKG 12-LEAD, TRACING ONLY STAT 10/17/2024 8:04 AM CDT from Last 3 Months Results * Chest XR, PA & LAT (10/17/2024 9:57 AM CDT) Anatomical Region Laterality Modality Chest Digital Radiogra phy 10/17/2024 9:57 AM CDT Impressions 10/17/2024 10:02 AM CDT IMPRESSION: No focal airspace opacities, pleural effusion or pneumothorax. The cardiac and mediastinal silhouettes are normal. Narrative 10/17/2024 10:02 AM CDT EXAM: XR CHEST 2 VIEWS LOCATION: [facility] DATE: 10/17/2024 INDICATION: 54F, non traumatic chest pain radiating to back COMPARISON: None. Procedure Note Selene Garcia MD - 10/17/2024 EXAM: XR CHEST 2 VIEWS LOCATION: [facility] DATE: 10/17/2024 INDICATION: 54F, non traumatic chest pain radiating to back COMPARISON: None. IMPRESSION: No focal airspace opacities, pleural effusion or pneumothorax.The cardiac and mediastinal silhouettes are normal. us Mickey Goins MD IMG DIAGNOSTIC IMAGING ORD ERABLES Final Result * Extra Red Top Tube (10/17/2024 8:15 AM CDT) Hold Specimen [facility] 10/17/2024 9:31 AM CDT [facility] Blood BLOOD SPECIMEN / Unknown Venipuncture / Unknown 10/17/2024 8:15 AM CDT 10/17/2024 8:21 AM CDT us Mickey Goins MD LAB - BLOOD ORDERABLES Fin al Result Performing Organization Address City/[facility]/ZIP Co de Phone Number [facility] [address] [place] [address]. Room # [address] [place] [id number] * Extra Blue Top Tube (10/17/2024 8:15 AM CDT) Hold Specimen [facility] 10/17/2024 9:31 AM CDT [facility] Blood BLOOD SPECIMEN / Unknown Venipuncture / Unknown 10/17/2024 8:15 AM CDT 10/17/2024 8:20 AM CDT us Mickey Goins MD LAB - BLOOD ORDERABLES Fin al Result Performing Organization Address City/[facility]/ZIP Co de Phone Number [facility]. Room [address] [place] [address] * (ABNORMAL) CBC with platelets and differential (10/17/2024 8:15 AM CDT) [facility] Signature WBC Count 3.2(L) 4.0 - 11.0 10e3/uL 10/17/2024 8:23 AM CDT [facility] RBC Count 4.02 3.80 - 5.20 10e6/uL 10/17/2024 8:23 AM CDT [facility] Hemoglobin 13.4 11.7 - 15.7 g/dL 10/17/2024 8:23 AM CDT [facility] Hematocrit 38.8 35.0 - 47.0 % 10/17/2024 8:23 AM CDT [facility] MCV 97 78 - 100 fL 10/17/2024 8:23 AM CDT [facility] MCH 33.3(H) 26.5 - 33.0 pg 10/17/2024 8:23 AM CDT [facility] MCHC 34.5 31.5 - 36.5 g/dL 10/17/2024 8:23 AM CDT [facility] RDW 12.3 10.0 - 15.0 % 10/17/2024 8:23 AM CDT [facility] Platelet Count 208 150 - 450 10e3/uL 10/17/2024 8:23 AM CDT [facility] % Neutrophils 71 % 10/17/2024 8:23 AM CDT [facility] % Lymphocytes 8 % 10/17/2024 8:23 AM CDT [facility] % Monocytes 18 % 10/17/2024 8:23 AM CDT [facility] % Eosinophils 2 % 10/17/2024 8:23 AM CDT [facility] % Basophils 1 % 10/17/2024 8:23 AM CDT [facility] % Immature Granulocytes 0 % 10/17/2024 8:23 AM CDT [facility] NRBCs per 100 WBC 0 <1 /100 025 8:23 AM CDT [facility] Absolute Neutrophils 2.2 1.6 - 8.3 10e3/uL 10/17/2024 8:23 AM CDT [facility] Absolute Lymphocytes 0.3(L) 0.8 - 5.3 10e3/uL 10/17/2024 8:23 AM CDT [facility] Absolute Monocytes 0.6 0.0 - 1.3 10e3/uL 10/17/2024 8:23 AM CDT [facility] Absolute Eosinophils 0.1 0.0 - 0.7 10e3/uL 10/17/2024 8:23 AM CDT [facility] Absolute Basophils 0.0 0.0 - 0.2 10e3/uL 10/17/2024 8:23 AM CDT [facility] Absolute Immature Granulocytes 0.0 <=0.4 10e3/uL 10/17/2024 8:23 AM CDT [facility] Absolute NRBCs 0.0 10e3/uL 10/17/2024 8:23 AM CDT [facility] Blood BLOOD SPECIMEN / Unknown Venipuncture / Unknown 10/17/2024 8:15 AM CDT 10/17/2024 8:21 AM CDT Mickey Goins MD LAB - BLOOD ORDERABLES Fin al Result [facility] [address] [facility]. Room [address] [place] [address], [facility] * Troponin T, High Sensitivity (10/17/2024 8:15 AM CDT) Pathologist [facility] Troponin T, High Sensitivity <6 <=14 ng/L 10/17/2024 8:56 AM CDT [facility] Comment: Either a High Sensitivity Troponin [...] 8:15 AM CDT 10/17/2024 8:20 AM CDT us Mickey Goins MD LAB - BLOOD ORDERABLES Fin al Result [facility] [address] [facility]. Room [address] [place] [address] * D dimer quantitative (10/17/2024 8:15 AM CDT) D-Dimer Quantitative 0.44 0.00 - 0.50 ug/mL FEU 10/17/2024 9:26 AM CDT [facility] Blood BLOOD SPECIMEN / Unknown Venipuncture / Unknown 10/17/2024 8:15 AM CDT 10/17/2024 8:20 AM CDT Narrative [facility] - 10/17/2024 9:26 AM CDT This [...] out pulmonary embolism: The ADJUST-PE Study. SIERRA 2014;311:1255-9785.; FIDEL Abel et al. Diagnostic accuracy of conventional or age adjusted D-dimer cutoff values in older patients with suspected venous thromboembolism. Systemic review and meta-analysis. BMJ 2013:346:f2492. Mickey Goins MD LAB - BLOOD ORDERABLES Fin al Result Performing Organization Address City/[facility]/ZIP Co de Phone Number [facility] [address] [place] [address]. Room # [address] [place] [address] * (ABNORMAL) Basic metabolic panel (10/17/2024 8:15 AM CDT) Sodium 137 135 - 145 mmol/L 10/17/2024 8:57 AM CDT [facility] Potassium 3.9 3.4 - 5.3 mmol/L 10/17/2024 8:57 AM CDT [facility] Chloride 99 98 - 107 mmol/L 10/17/2024 8:57 AM CDT [facility] Carbon Dioxide (CO2) 27 22 - 29 mmol/L 10/17/2024 8:57 AM T [facility] Anion Gap 11 7 - 15 mmol/L 10/17/2024 8:57 AM T [facility] Urea Nitrogen 5.4(L) 6.0 - 20.0 mg/dL 10/17/2024 8:57 AM CDT [facility] Creatinine 0.69 0.51 - 0.95 mg/dL 10/17/2024 8:57 AM CDT [facility] GFR Estimate >90 >60 mL/min/1.7 3m2 10/17/2024 8:57 AM CDT [facility] Comment:eGFR calculated us2020 CKD-EPI equation. Calcium 8.6(L) 8.8 - 10.4 mg/dL 10/17/2024 8:57 AM T [facility] Glucose 107(H) 70 - 99 mg/dL 10/17/2024 8:57 AM T [facility] Blood BLOOD SPECIMEN / Unknown Venipuncture / Unknown 10/17/2024 8:15 AM CDT 10/17/2024 8:20 AM CDT Mickey Goins MD LAB - BLOOD ORDERABLES Fin al Result [facility] [address] [facility]. Room [address] [place] [address] * EKG 12-lead, tracing only (10/17/2024 8:04 AM CDT) Systolic Blood Pressure mmHg RADIOLOGY RESULTS Diastolic Blood Pressure mmHg RADIOLOGY RESULTS Ventricular Rate 88 BPM RAD IOLOGY RESULTS Atrial Rate 88 BPM RADIOLOG Y RESULTS [place] Interval 162 ms RADIOLOG Y RESULTS QRS Duration 82 ms RADIOLO GY RESULTS QT 354 ms RADIOLOGY RESULTS QTc 428 ms RADIOLOGY RESULTS P [place] 24 degrees RADIOLOGY RESULTS R AXIS -4 degrees RADIOLOGY RESULTS T [place] 31 degrees RADIOLOGY RESULTS Interpretation ECG Sinus rhythm Normal ECG No previous ECGs available Confirmed by SEE ED PROVIDER NOTE FOR, ECG INTERPRETATION ([id number]), marketing editor Erick Mustafa ([id number]) on 10/18/2024 10:16:06 AM RADIOLOGY RESULTS 10/17/2024 8:04 AM CDT 10/18/2024 10:16 AM CDT us Mickey Goins MD ECG ORDERABLES Edited Res ult - Final Performing Organization Address City/State/[facility] Co de Phone Number RADIOLOGY RESULTS from Last 3 Months Insurance [facility] Care Teams Game Room Attendant Relationship Specialty Start Date End Date Elida Blevins NP [address] [place] [address] PCP - General Nurse Practitioner 06/25/14
--- OUTSIDE RECORDS SUMMARY | 2024-10-21 21:43 | XMS_ITS | Encounter Summary ---
Author Organization [facility] Address [address] [place] [address] Care Team Providers Care Correctional Therapy Director Name Role Phone Elida Blevins APRN, CNP Primary Care Provider Encounter Details Date Type Department Care Team (Late st Contact Info) Description 08/26/2012 Emergency Room External to [facility], Provider URINARY TRACT INFECTION Social History Tobacco Use Types Packs/Day Years [...] on file documented as of this encounter Progress Notes * [facility], Provider - 08/26/2012 12:00 AM CDT documented in this encounter Plan of Treatment Not on file documented as of this encounter Visit Diagnoses Not on filedocumented in this encounter Care Teams Correctional Therapy Director Relationship Specialty Start Date End Date Elida Blevins APRN, CNP [address] [place] [address] PCP - General 08/15/09 documented as of this encounter
[2024-10-21 22:25] VITALS: BP 118/65; PULSE 85; RESP 16; O2SAT 96
== END 2024-10-21 23:28 | disposition home or self-care (01) ==
PROVIDERS: Emergency Provider Family Medicine
DX: M79.602 Pain in left arm (principal); M79.601 Pain in right arm
CPT/HCPCS: 96372; 99284; A9270; J1885